=== PATIENT | female | born 1985 | race Caucasian/White ===

== ENCOUNTER 2018-02-28 13:51 | Emergency (ER) | payer MEDICAID ==
[~2018-02-28] VITALS: Ht 162.6 cm; Wt 77.6 kg
[2018-02-28 14:03] VITALS: BP 129/71; Ht 162.6 cm; Wt 77.6 kg
== END 2018-02-28 15:34 | disposition home or self-care (01) ==
LOC: ED 13:51
DX: S05.02XA Injury of conjunctiva and corneal abrasion without foreign body, left eye, initial encounter (principal); X58.XXXA Exposure to other specified factors, initial encounter; Y93.89 Activity, other specified; Y92.89 Other specified places as the place of occurrence of the external cause; Y99.8 Other external cause status; Z88.0 Allergy status to penicillin

== ENCOUNTER 2019-06-30 10:01 | Emergency (ER) | payer OTHER, MEDICAID ==
[~2019-06-30] VITALS: Ht 160 cm; Wt 79.0 kg
[2019-06-30 10:10] VITALS: BP 112/60; Ht 160 cm; Wt 79.0 kg
== END 2019-06-30 10:50 | disposition home or self-care (01) ==
LOC: ED 10:01
DX: K12.1 Other forms of stomatitis (principal); Z88.0 Allergy status to penicillin; Z98.890 Other specified postprocedural states

== ENCOUNTER 2019-09-18 11:00 | Emergency (ER) | payer OTHER, MEDICAID ==
[~2019-09-18] VITALS: Ht 162.6 cm; Wt 78.5 kg
[2019-09-18 12:44] VITALS: BP 131/80
== END 2019-09-18 12:44 | disposition home or self-care (01) ==
LOC: ED 11:00
DX: M25.562 Pain in left knee (principal); Z88.0 Allergy status to penicillin

== ENCOUNTER 2020-06-16 19:57 | Emergency (ER) | payer MEDICAID ==
[~2020-06-16] VITALS: Ht 162.6 cm; Wt 83.1 kg
[2020-06-16 20:32] VITALS: Ht 162.6 cm; Wt 83.1 kg
[2020-06-16 22:32] LABS: microscopic required? NO
[2020-06-16 22:48] LABS: BASOPHIL % 0.4 % (0-2); PLATELET COUNT 334 x10^3mcL (130-400); RED CELL DISTRIBUTION WIDTH 13.1 % (11.5-14.5)
[2020-06-16 22:54] LABS: urine erythrocyte NEGATIVE (NEGATIVE)
[2020-06-16 23:05] LABS: CARBON DIOXIDE 26.6 mmol/L (21-32); CHLORIDE SERUM 103 mmol/L (98-107); CREATININE SERUM 0.7 mg/dL (0.6-1.0); GFR1 > 60 mL/min; GLUCOSE SERUM 103 mg/dL (74-106); POTASSIUM SERUM 3.8 mmol/L (3.5-5.1); SODIUM SERUM 138 mmol/L (136-145)
[2020-06-16 23:09] LABS: ALBUMIN 3.8 g/dL (3.4-5.0); ALKALINE PHOSPHATASE 45 U/L (46-116); ALT/SGPT 31 U/L (14-59); AST/SGOT 17 U/L (15-37); BILIRUBIN TOTAL 0.26 mg/dL (0.20-1.00); TOTAL PROTEIN, SERUM 7.6 g/dL (6.4-8.2)
[2020-06-17 00:13] VITALS: BP 124/72
== END 2020-06-17 00:13 | disposition home or self-care (01) ==
LOC: ED 19:57
PROVIDERS: Emergency Medicine
DX: R10.2 Pelvic and perineal pain (principal); R10.31 Right lower quadrant pain; R10.32 Left lower quadrant pain; Z98.51 Tubal ligation status; Z98.890 Other specified postprocedural states; Z88.0 Allergy status to penicillin
CPT/HCPCS: 87491; 87591; Q0092

== ENCOUNTER 2020-08-04 10:49 | Emergency (ER) | payer MEDICAID, SELFPAY ==
[~2020-08-04] VITALS: Ht 162.6 cm; Wt 83.0 kg
[2020-08-04 10:50] VITALS: Ht 162.6 cm; Wt 83.0 kg
[2020-08-04 12:15] VITALS: BP 134/83
== END 2020-08-04 12:15 | disposition home or self-care (01) ==
LOC: ED 10:49
DX: M79.10 Myalgia, unspecified site (principal); J02.9 Acute pharyngitis, unspecified; R13.10 Dysphagia, unspecified; Z20.828 Contact with and (suspected) exposure to other viral communicable diseases; Z98.890 Other specified postprocedural states; Z98.51 Tubal ligation status; Z88.0 Allergy status to penicillin
CPT/HCPCS: U0003